=== PATIENT | male | born 1975 | race Caucasian/White ===

== ENCOUNTER 2017-12-25 09:33 | Outpatient (CLI) | payer OTHER ==
--- NOTE | 2017-12-25 13:47 | MRI ---
MRI LUMBAR SPINE WITHOUT IV CONTRAST: Date: 12/25/17 HISTORY: Chronic back pain for many years, but has gotten worse recently. Right-sided radiculopathy with bilat eral foot pain. The retroperitoneal structures have a normal MRI appearance. FINDINGS: There is slight nonspecific heterogeneity of the bone marrow. There is a focus of increased T1 and T2 -weighted signal intensity seen in the L2 vertebral body which may represent focal area of foot versu s hemangioma. There are prominent end plate degenerative changes at the L3- level. T11-12 Level: There is a mild broad based disc osteophyte complex which narrows the ventral subarachnoid space. The left neural foramen is patent. However, based on sagittal imaging, there does appear to be moderate right-sided foraminal narrowing. Axial imaging was not obtained through this level. There are promine nt facet degenerative changes seen on the right at this level. T12-L1 and L1-2 Levels: There is no disc bulge or disc herniation at these levels. Central spinal canal and neural foramina a re patent. L2-3 Level: There is minimal disc bulge present which slightly effaces the left anterolateral aspect of the theca l sac. There are facet hypertrophic changes at this level. Neural foramina are patent. L3-4 Level: There is severe loss of intervertebral disc height with prominent end plate degenerative changes at t his level. There is disc osteophyte complex present. Findings result in generalized mild to moderate narrowing of the central spinal canal. There is fluid signal intensity seen in the facet joints, prob ably related to facet degenerative changes. There is moderate left and mild to moderate right-sided n eural foraminal narrowing. L4-5 Level: There is a broad based disc osteophyte complex with a right central and paracentral disc protrusion. There are facet hypertrophic changes at this level with fluid signal intensity seen in the facet join ts. There is mild ligamentous thickening. There is generalized mild narrowing of the central spinal c anal. There is moderate to severe right-sided neural foraminal narrowing with minimal encroachment on the left neural foramen. L5-S1 Level: There is mild disc osteophyte complex present. There are facet hypertrophic changes, greater on the r ight. Fluid signal intensity is seen in the facet joints. There is encroachment on the traversing lef t S1 nerve root at this level due to minimal disc bulge, but there does not appear to be deformity of the nerve root. No narrowing of the central spinal canal. There is minimal encroachment on each neur al foramen. IMPRESSION: 1. Degenerative changes in the lumbar spine, greatest at the L3-4 and L4-5 levels. There is moderate to severe left-sided neural foraminal narrowing at L3-4 level with moderate to severe right-sided ne ural foraminal narrowing at the L4-5 level. 2. Degenerative changes at the T11-12 level with narrowing of the right neural foramen, predominantl y secondary to the facet degenerative changes and minimal disc bulge. POS: NAYA
== END 2017-12-25 09:34 | disposition home or self-care (01) ==
LOC: SCSMRI 09:33
PROVIDERS: ATTEND Orthopaedic Surgery
DX: M47.26 Other spondylosis with radiculopathy, lumbar region (principal); M99.83 Other biomechanical lesions of lumbar region; M47.24 Other spondylosis with radiculopathy, thoracic region; M99.82 Other biomechanical lesions of thoracic region
CPT/HCPCS: 72148

== ENCOUNTER 2018-01-12 10:40 | Outpatient (CLI) | payer OTHER ==
[2018-01-12 12:19] LABS: Hemoglobin 14.5 g/dL (14.0-18.0); Mean Corpuscular HGB CONC 35.1 g/dL (32.0-36.0); Mean Corpuscular Hemoglobin 32.3 pg (27.0-31.0); Mean Corpuscular Volume 92.1 fl (80.0-94.0); Platelet Count 334 thou/uL (130-400); RBC Distribution Width 11.3 % (11.5-14.5); Red Blood Cell (RBC) Count 4.48 mill/uL (4.70-6.10); White Blood Cell (WBC) Count 7.8 thou/uL (4.8-10.8)
[2018-01-12 12:28] LABS: PTT 28.7 SEC (22.9-36.1); Prothrombin Time 13.5 SEC (12.0-14.7)
[2018-01-12 12:38] LABS: Anion Gap 11 mmol/L (10-20); BUN (Urea Nitrogen) 19 mg/dL (8.9-20.6); Calc. Creatinine Clearance 0 mL/min (70-130); Carbon Dioxide 26 mmol/L (22-29); Chloride 106 mmol/L (98-107); Estimated GFR-MDRD 83; Potassium 4.2 mmol/L (3.5-5.1); Sodium 139 mmol/L (136-145)
[2018-01-12 12:43] LABS: Glucose 57 mg/dL (70-105)
== END 2018-01-12 10:41 | disposition home or self-care (01) ==
LOC: LABBT 10:40
PROVIDERS: ATTEND Surgery
DX: Z01.818 Encounter for other preprocedural examination (principal); M51.16 Intervertebral disc disorders with radiculopathy, lumbar region
CPT/HCPCS: 80048; 85027; 85610; 85730; 93005; 93010

== ENCOUNTER 2018-01-16 10:11 | Day surgery (SDC) | payer OTHER ==
[2018-01-12 11:26] VITALS: BMI 24.4
[2018-01-16] MEDS ORDERED: Thrombin 5000 UNITS/5 ML VIAL ONE (10:41)
[2018-01-16] MEDS ORDERED: Bacitracin Zinc Ointment 30 gm TUBE ONE (10:41)
[2018-01-16] MEDS ORDERED: Sodium Chloride 0.9% 10 ML ONE (10:41)
[2018-01-16] MEDS ORDERED: Fentanyl 100 MCG/2 ML VIAL ONE ×3 (10:58→14:53)
[2018-01-16] MEDS ORDERED: CEFAZOLIN/Water 2 GM/20 ML SYRINGE ONE ×2 (11:02→17:37)
[2018-01-16] MEDS ORDERED: Phenylephrine HCL 10 MG/ML VIAL ONE (12:24)
[2018-01-16] MEDS ORDERED: Fleet Enema 133 ML BOT PR PRN (14:23)
[2018-01-16] MEDS ORDERED: Promethazine HCl 25 MG/ML VIAL IM PRN (14:23)
[2018-01-16] MEDS ORDERED: Acetaminophen 325 MG TAB PO PRN (14:23)
[2018-01-16] MEDS ORDERED: Milk Of Magnesia 30 ML UDCUP PO PRN (14:23)
[2018-01-16] MEDS ORDERED: Bisacodyl 10 MG SUPP PR PRN (14:23)
[2018-01-16] MEDS ORDERED: Morphine 4 MG/ML VIAL SLOW IVP PRN (14:23)
[2018-01-16] MEDS ORDERED: Mag-Al 1200 mg/1200 mg/30 ML UDCUP PO PRN (14:23)
[2018-01-16] MEDS ORDERED: HYDROcodone/Acetaminophen 7.5/325 mg Tablet PO PRN (14:23)
[2018-01-16] MEDS ORDERED: Acetaminophen/Codeine 30-300mg Tablet PO PRN (14:23)
[2018-01-16] MEDS ORDERED: tiZANidine HCl 4 MG TAB PO PRN (14:23)
[2018-01-16] MEDS ORDERED: traMADol HCl 50 MG TAB PO PRN (14:23)
[2018-01-16] MEDS ORDERED: PROVENTIL INHALER 6.7 G (200 INHALATIONS) INH PRN (14:27)
[2018-01-16] MEDS ORDERED: Sodium Chloride 0.9% 1,000 ML IV SCH (14:30)
[2018-01-16] MEDS ORDERED: Morphine 4 MG/ML VIAL ONE (15:58)
[2018-01-16] MEDS ORDERED: PROPOFOL 200 MG/20 ML VIAL ONE (16:41)
[2018-01-16] MEDS ORDERED: Ondansetron HCl/PF 4 MG/2 ML Vial ONE (16:41)
[2018-01-16] MEDS ORDERED: Lidocaine 1% PF 5 ML VIAL ONE (16:41)
[2018-01-16] MEDS ORDERED: PHENYLEPHRINE-NS 100 MCG/ML 10 ML SYRINGE ONE (16:41)
[2018-01-16] MEDS ORDERED: Glycopyrrolate 0.2 MG/ML 5 ML SYRINGE ONE (16:41)
[2018-01-16] MEDS ORDERED: ePHEDrine/0.9% NaCl/PF SYRINGE 50 mg/10 ml ONE (16:41)
[2018-01-16] MEDS ORDERED: HYDROcodone/Acetaminophen 5/325 mg Tablet ONE (17:15)
[2018-01-16] MEDS ORDERED: Ondansetron ODT 4 MG TAB ONE (17:54)
[2018-01-16] MEDS ORDERED: CEFAZOLIN/Water 2 GM/20 ML SYRINGE SLOW IVP SCH (19:00)
--- NOTE | 2018-01-16 20:39 | OP ---
DATE OF SERVICE: 01/16/2018 SURGEON: Jose Cruz Ramirez M.D. [facility] SUPPORT: Amor Tenorio PA-C OR: 12 WOUND: Type 1 wound. PREPROCEDURE DIAGNOSES: Right L4 and right L5 radiculopathy with right L4-L5 disk extrusion with far lateral component compressing exiting right L4 and traversing right L5, nerve root with low back and right leg pain. DESCRIPTION OF PROCEDURE: After informed consent was obtained from the patient, the patient brought to OR 12. Proper patient pause and identification carried out. He was then positioned prone on the operating table following induction of general anesthesia. All appropriate points were padded. We i dentified the L4-L5 segment. This region was sterilely cleansed, prepared, and draped. Proper patie nt pause and identification was carried out. The right L4-L5 segment was then exposed. Localization film confirmed our area of interest. We then performed a right L4-L5 hemilaminotomy, foraminotomy. We brought the microscope in for microdissection and a bone work was then performed via a standard r ight L4-L5 approach to identify the traversing right L5 nerve root. Disk space was entered. We then worked via lateral transfacet approach to identify the right L4 exiting nerve root. Disk material w as identified there as well and removed both paracentral and lateral and far lateral disk material wa s removed resulting in excellent decompression of the exiting L4 and right L5 area and the traversing right L5 nerve roots. There was no spinal fluid leak. Hemostasis was maximized throughout. The wo und was then copiously irrigated and closed in anatomic layers following the sprinkling of vancomycin powder, meticulous hemostasis was also performed as well. Patient then emerged from anesthesia. PROCEDURE: 1. Right L4-L5 hemilaminotomy, foraminotomy, and diskectomy. 2. Transfacet lateral approach for lateral and far lateral disk extrusion for decompression of the e xiting L4 nerve root. 3. Use of operative microscope for microdissection.
[2018-01-16] MEDS ORDERED: Gabapentin 300 MG CAP PO SCH (21:00)
[2018-01-16] MEDS ORDERED: Famotidine 20 MG TAB PO SCH (21:00)
[2018-01-17] MEDS ORDERED: Nebivolol HCl 5 MG TAB PO SCH (09:00)
[2018-01-17] MEDS ORDERED: Multivit, Therapeutic 1 TAB PO SCH (09:00)
[2018-01-17] MEDS ORDERED: Lisinopril 20 MG TAB PO SCH (09:00)
== END 2018-01-16 18:10 | disposition home or self-care (01) ==
LOC: SDC 10:11
PROVIDERS: ATTEND Surgery
PROC: 0ST20ZZ Resection of Lumbar Vertebral Disc, Open Approach (ICD-10-PCS; principal; 2018-01-16)
DX: M51.16 Intervertebral disc disorders with radiculopathy, lumbar region (principal); Z79.899 Other long term (current) drug therapy; Z88.8 Allergy status to other drugs, medicaments and biological substances
CPT/HCPCS: 76001; 96374; A4216; J0131; J2001; J2270; J2370; J2405; J2704; J3010; J3370; J3490; Q0162

== ENCOUNTER 2019-09-11 11:26 | Day surgery (SDC) | payer OTHER ==
[2019-09-10 09:56] VITALS: BMI 26.3
[~2019-09-11 11:26] MED LIST: PHENYLEPHRINE-NS 100 MCG/ML 10 ML SYRINGE ONE
[2019-09-11] MEDS ORDERED: Propofol 500 MG/50 ML VIAL ONE (12:20)
[2019-09-11] MEDS ORDERED: Fentanyl 100 MCG/2 ML VIAL ONE (12:20)
[2019-09-11] MEDS ORDERED: Midazolam HCl 5 mg/5 ml Vial ONE (12:20)
[2019-09-11] MEDS ORDERED: EPINEPHrine 1 MG/ML AMP ONE (12:28)
[2019-09-11] MEDS ORDERED: Bupivacaine PF 0.5% 30 ML VIAL ONE (12:28)
[2019-09-11] MEDS ORDERED: Sodium Chloride 0.9% 10 ML ONE (12:28)
[2019-09-11] MEDS ORDERED: CEFAZOLIN 1 GM VIAL ONE (12:43)
[2019-09-11] MEDS ORDERED: Sodium Chloride 0.9% 100 ML ONE (12:43)
--- NOTE | 2019-09-11 19:00 | OP ---
DATE OF PROCEDURE: 09/11/2019 PREOPERATIVE DIAGNOSES: 1. Complex regional pain syndrome, lower extremity bilateral. 2. Chronic pain syndrome. 3. Peripheral neuropathy. POSTOPERATIVE DIAGNOSES: 1. Complex regional pain syndrome, lower extremity bilateral. 2. Chronic pain syndrome. 3. Peripheral neuropathy. PROCEDURES PERFORMED: 1. Implantation of a right spinal cord stimulation electrode array with tip at the mid body of T7. 2. Implantation of a left spinal cord stimulation electrode array with tip in the mid body of T7. 3. Implantation of internal pulse generator, nonrechargeable, [employer]. 4. Intraoperative programming. 5. Fluoroscopic guidance. ANESTHESIA: TIVA. COMPLICATIONS: None. SUMMARY: Risks and benefits were discussed. The patient has had a successful trial of spinal cord stimulation. He was taken to the OR, prepped and draped in standard fashion. Fluoroscopic guidance was used to identify the thoracolumbar junction. The L1-L2 interspace was chosen as entry into the epidural space. After adequate local anesthesia, skin incision was made with blunt dissection down to the supraspinous ligament. The supplied Tuohy needles were advanced into the ligament of flavum, loss of resistance technique, paramedian approach, L1-2, 1 pass. No paresthesia, CSF, or heme. These were placed both right and left for access to the epidural space. At no point, where there any CSF flow. The right lead was implanted first with the most cephalad electrode at the midbody of T7 over the dorsal columns. The second electrode was then implanted a line parallel with the first intraoperative programming using multiple electrode arrays, pulse width, frequencies was used to identify appropriate stimulation pattern. Pattern was adequate in mid body of the lead. The stylets were then removed intact. The needles were removed intact. Anchors were slipped over the each lead. Each lead was anchored to the fascia utilizing two 2-0 silk sutures. Pocket was then made at the predetermined right buttock site. After adequate local anesthesia, incision was carried down to the fascia. Fascia was undermined using blunt dissection. Tunneling was accomplished between incision using the supplied straw tunneler. The leads were passed through the straw, straw was removed. The leads were connected to the nonrechargeable [employer] internal pulse generator. All set screws were tightened using the supplied ratcheted screwdriver. The IPG was placed in the pocket riding side out. All electrode contacts were functioning after interrogation. Closure was accomplished in layers using 2-0 Vicryl and the skin was closed with a running subcuticular 3-0 Rapide. Dermabond after let dry, 4x4s and Medipore tape. Prior to closure, all counts were correct x2. Job ID: [id number]
== END 2019-09-11 15:40 | disposition home or self-care (01) ==
LOC: SDC 11:26
PROVIDERS: ATTEND Anesthesiology Pain Medicine
DX: G90.523 Complex regional pain syndrome I of lower limb, bilateral (principal); G89.4 Chronic pain syndrome; G62.9 Polyneuropathy, unspecified; Z79.899 Other long term (current) drug therapy; Z88.8 Allergy status to other drugs, medicaments and biological substances
CPT/HCPCS: 72020; 72070; 76000; C1767; C1778; J0171; J0690; J2250; J2704; J3010; J3490; S0020